=== PATIENT | female | born 1945 | race Caucasian/White ===

== ENCOUNTER 2023-12-07 10:30 | Day surgery (SDC) | payer OTHER ==
[2023-12-04 13:39] LABS: Absolute Basophils 0.1 K/uL (0-0.5); Absolute Eosinophils 0.1 K/uL (0-0.5); Absolute Lymphocytes (CBC) 2.9 K/uL (0.7-4.9); Absolute Monocytes 0.6 K/uL (0.1-1.3); Absolute Neutrophil 5.8 K/uL (1.8-8.0); Basophils % 0.9 % (0-1.3); Hematocrit 39.9 % (36.0-45.0); Hemoglobin 13.4 g/dL (12.0-15.0); Lymphocytes % 30.4 % (15.3-44.8); MCH 29.2 pg (27.0-35.0); MCHC 33.5 g/dL (32.0-36.0); MCV 86.9 fL (80-100); MPV 7.7 fL (7.6-11.3); Monocytes % 6.2 % (3.3-12.3); Neutrophils % 61.5 % (41.7-73.7); Nucleated Red Blood Cells % 0.1 % (0-0); Platelets 279 thou/uL (152-406); RBC Red Blood Cell Count 4.58 M/uL (3.86-4.86); Red Cell Distribution Width 15.9 % (12.1-15.2)
[2023-12-04 13:49] LABS: PT Prothrombin Time 15.5 SECONDS (9.4-12.5); PTT, Activated Partial Thromb 36.3 SECONDS (24.3-36.9); Protime INR 1.42
[2023-12-04 13:54] LABS: Anion Gap 9.9 mEq/L (5.0-15.0); Potassium 3.9 mEq/L (3.5-5.1)
--- NOTE | 2023-12-05 12:44 | EKG ---
Test Date: 2023-12-04 Test Time: 13:22:30 Director Software Development: KIET MEASUREMENT RESULTS: Intervals: Rate: 84 MA: QRSD: 84 QT: 380 QTc: 449 [place]: P: MA: QRS: -58 T: 52 INTERPRETIVE STATEMENTS: Atrial fibrillation with premature ventricular or aberrantly conducted complexes Left anterior fascicular block Abnormal ECG No previous ECG available for comparison Electronically Signed On 12-05-23 12:41:52 CDT by William Breen
[2023-12-07] MEDS ORDERED: propofoL 200 MG/20 ML VIAL IV ONE (13:05)
[2023-12-07] MEDS ORDERED: LIDOCAINE 2% MPF 5 ML VIAL ONE (13:05)
[2023-12-07 13:54] VITALS: TEMP 97.4
[2023-12-07] MEDS: NA CHLORIDE 0.9% 500 ML ONE (14:00)
[2023-12-07 15:30] VITALS: BP 115/52; O2SAT 98
--- NOTE | 2023-12-07 19:53 | OP ---
Date of Procedure: 12/07/2023 Surgeon: SADIE STANTON Procedures Performed: 1.Transesophageal echocardiogram. 2.Electrical cardioversion, into normal sinus rhythm. We used synchronized 200 joule shock. Indication: Atrial fibrillation. Description Of Procedure: After risks, benefits, and alternatives were explained, the patient agreed to procedure and signed informed consent. The patient was brought into the OR room 1. After approp riate time-out, anesthesia, blood, propofol, and then PERRY probe was inserted without difficulty. The re was no left atrial appendage thrombus seen. Then, probe was removed and then synchronized 200 berta le electrical cardioversion was performed, successfully converting into a normal sinus rhythm. Conclusion: Successful PERRY-guided cardioversion. SR/MODL Voice ID: [id number] Report ID: [id number]
--- NOTE | 2023-12-08 08:07 | TEE ---
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 TRANSEOPHAGEAL ECHOCARDIOGRAM PROBE WAS INSERTED, NO DIFFICULTY 2. NORMAL LEFT VENTRICULAR EJECTION FRACTION 55-60% 3. MILD MITRAL REGURGITATION 4. NO LEFT ATRIAL APPENDAGE THROMBUS IS SEEN TECHNOLOGIST: SHAREE HERNANDEZ
--- NOTE | 2023-12-09 14:11 | EKG ---
Test Date: 2023-12-07 Test Time: 13:34:29 [employer] Source Intelligence Technician: LIZY MEASUREMENT RESULTS: Intervals: Rate: 49 IL: 170 QRSD: 84 QT: 454 QTc: 410 [place]: P: 73 IL: 170 QRS: -41 T: -23 INTERPRETIVE STATEMENTS: Marked sinus bradycardia Left axis deviation Low voltage QRS Nonspecific T wave abnormality Abnormal ECG Compared to ECG 12/04/2023 13:22:30 Left-axis deviation now present Low QRS voltage now present T-wave abnormality now present Atrial fibrillation no longer present Ventricular premature complex(es) no longer present Left anterior fascicular block no longer present Electronically Signed On 12-09-23 14:07:40 CDT by Robbie Cooper
== END 2023-12-07 15:21 | disposition home or self-care (01) ==
LOC: CCL 10:30
PROVIDERS: ATTEND Internal Medicine
DX: I48.91 Unspecified atrial fibrillation (principal); I12.9 Hypertensive chronic kidney disease with stage 1 through stage 4 chronic kidney disease, or unspecified chronic kidney disease; N18.9 Chronic kidney disease, unspecified; J44.9 Chronic obstructive pulmonary disease, unspecified; K21.9 Gastro-esophageal reflux disease without esophagitis; E78.5 Hyperlipidemia, unspecified; K76.0 Fatty (change of) liver, not elsewhere classified; M19.90 Unspecified osteoarthritis, unspecified site; E66.01 Morbid (severe) obesity due to excess calories; Z68.42 Body mass index [BMI] 45.0-49.9, adult; Z79.82 Long term (current) use of aspirin; Z79.01 Long term (current) use of anticoagulants; Z79.899 Other long term (current) drug therapy; Z88.5 Allergy status to narcotic agent; Z88.8 Allergy status to other drugs, medicaments and biological substances; Z87.891 Personal history of nicotine dependence; Z82.49 Family history of ischemic heart disease and other diseases of the circulatory system
CPT/HCPCS: 93005 ×2; 93312; 85025; 80048; 36415; 85610; 85730; 92960; J2704; J2001; J7040